=== PATIENT | male | born 1940 | race Native Hawaiian/Other Pacific Islander ===

== ENCOUNTER 2018-10-03 14:00 | Emergency (ER) | payer OTHER, MEDICARE ==
[~2018-10-03] VITALS: Ht 182.9 cm; Wt 79.4 kg
[2018-10-03 14:08] VITALS: BP 177/82; TEMP 98
[2018-10-03 14:28] LABS: PLATELET COUNT 274 K/uL (142-355)
[2018-10-03 14:39] LABS: POTASSIUM 3.7 mmol/L (3.6-5.2)
[2018-10-03] MEDS ORDERED: NAMENDA10 MG PO (16:55)
[2018-10-03] MEDS ORDERED: SEROQUEL100 MG PO (16:56)
[2018-10-03] MEDS ORDERED: SEROQUEL50 MG PO (16:58)
[2018-10-03] MEDS ORDERED: TAB-A-VIT1 PO (16:59)
[2018-10-03] MEDS ORDERED: VENLAFAXINE150 M1 PO (17:00)
[2018-10-03] MEDS ORDERED: VISINE TEAR1 OPTH (17:02)
[2018-10-03] MEDS ORDERED: MAPAP325 MG PO (17:04)
[2018-10-03] MEDS ORDERED: NAPROSYN500 MG PO (17:05)
== END 2018-10-03 15:30 | disposition other institution (70) ==
LOC: ED 14:00
PROVIDERS: Family Medicine
DX: R46.89 Other symptoms and signs involving appearance and behavior (principal); F28 Other psychotic disorder not due to a substance or known physiological condition; Z04.6 Encounter for general psychiatric examination, requested by authority
CPT/HCPCS: 36415; 80053; 81000; 85027; 93005; 99285

== ENCOUNTER 2018-10-31 17:39 | Emergency (ER) | payer OTHER, MEDICARE ==
[~2018-10-31] VITALS: Ht 185.4 cm; Wt 77.1 kg
[2018-10-31 17:39] VITALS: BP 169/88; TEMP 97.8
[~2018-10-31 17:39] MED LIST: AMLODIPINE BESYLATE PO; CEPH500C20 PO; DOCU100C10 PO; DONE5TAB PO; LORA1TAB17 PO; MAGNSUS68 PO; MAPAP325 MG PO; MIRTAZAPINE7.5 MG PO; MUPI2OIN2 TOP; NAMENDA10 MG PO; NAPROSYN500 MG PO; OXCARBAZEPIN300 MG PO; SEROQUEL100 MG PO; SEROQUEL50 MG PO; TAB-A-VIT1 PO; VENLAFAXINE150 M1 PO; VISINE TEAR1 OPTH
[2018-10-31 17:54] LABS: PLATELET COUNT 194 K/uL (142-355)
[2018-10-31 18:00] LABS: POTASSIUM 3.6 mmol/L (3.6-5.2)
[2018-11-01] MEDS ORDERED: CICLODAN EX (01:29)
== END 2018-10-31 18:50 | disposition other institution (70) ==
LOC: ED 17:39
PROVIDERS: Family Medicine
DX: R46.89 Other symptoms and signs involving appearance and behavior (principal); F65.2 Exhibitionism; Z04.6 Encounter for general psychiatric examination, requested by authority; I10 Essential (primary) hypertension
CPT/HCPCS: 36415; 80053; 85027; 93005; 99285

== ENCOUNTER 2019-03-01 17:35 | Emergency (ER) | payer OTHER, MEDICARE ==
[~2019-03-01] VITALS: Ht 185.4 cm; Wt 77.1 kg
[~2019-03-01 17:35] MED LIST changes: +CICLODAN EX; +ESCI10TA PO; +OLANZAPINE10 MG PO; +RISP0.25 PO; +TRAZ50TA36 PO
[2019-03-01 17:47] VITALS: BP 173/74; TEMP 99.5
[2019-03-01 18:05] LABS: PLATELET COUNT 192 K/uL (142-355)
[2019-03-02] MEDS ORDERED: LORA2TAB7 PO (01:51)
[2019-03-02] MEDS ORDERED: STOOL SOFTNR100 MG PO (01:53)
[2019-03-02] MEDS ORDERED: TRAZODONE HYDR150 MG PO (01:56)
[2019-03-02] MEDS ORDERED: [UNRECOGNIZED DRUG - OTHER] EX (02:02)
== END 2019-03-01 19:12 | disposition other institution (70) ==
LOC: ED 17:35
PROVIDERS: Family Medicine
DX: G30.8 Other Alzheimer's disease (principal); F02.81 Dementia in other diseases classified elsewhere, unspecified severity, with behavioral disturbance; Z91.83 Wandering in diseases classified elsewhere; R41.0 Disorientation, unspecified; E86.0 Dehydration; Z04.6 Encounter for general psychiatric examination, requested by authority
CPT/HCPCS: 80053; 81000; 85027; 93005; 99285